=== PATIENT | female | born 1940 | race Caucasian/White ===

== ENCOUNTER → 2016-10-25 | Outpatient (CLI) | payer MEDICARE, OTHER ==
[2016-10-25 12:27] LABS: CH 26.7; CHCM 29.5; HCT 39.4 % (34.0-46.0); HDW 2.52; HGB 12.1 gm/dL (11.4-16.0); Hypochromasia Marked; MCH 27.8 pg (25.0-35.0); MCHC 30.7 g/dL (31.0-37.0); MCV 90.7 fL (80.0-100.0); Mean Platelet Volume 6.7; RBC 4.34 m/uL (3.80-5.40); RDW 13.9 % (11.5-15.5); WBC 14.8 k/uL (3.8-10.6)
[2016-10-25 12:52] LABS: Potassium 4.6 mmol/L (3.5-5.1)
[2016-10-25 13:34] LABS: Prothrombin Time 10.3 sec (9.0-12.0)
[2016-10-25 13:37] LABS: Partial Thromboplastin Time 21.1 sec (22.0-30.0)
== END | disposition home or self-care (01) ==
LOC: LABPAT 11:41
PROVIDERS: ATTEND Orthopaedic Surgery
DX: Z01.818 Encounter for other preprocedural examination (principal); M16.12 Unilateral primary osteoarthritis, left hip
CPT/HCPCS: 80051; 82565; 84520; 85027; 85610; 85730; 86850; 86900; 86901; 87070

== ENCOUNTER 2016-11-01 06:10 | Inpatient (IN) | payer MEDICARE, OTHER ==
[2016-10-20 11:30] VITALS: BMI 35.5
--- NOTE | 2016-10-31 11:24 | HP ---
DATE OF ADMISSION: Мария Hess is a 76-year-old patient seen with symptomatic left hip osteoarthritis. After having treatment options discussed, she elected to proceed with left total hip arthroplasty. Consent regarding the procedure was obtained. Medical clearance was provided by Dr. Sexton. Pulmonary clearance was provided by Dr. Chou. Cardiac clearance was provided Dr. Olivares. Past medical history is cardiovascular disease, hypertension, COPD. PAST SURGICAL HISTORY: Coronary artery bypass surgery, excision of ovarian cyst. Daily medications: 1. Amlodipine. 2. Lasix. 3. Lisinopril. 4. Spiriva. 5. Symbicort. 6. Ventolin. 7. Xarelto. ALLERGIES ARE CODEINE. SOCIAL HISTORY: Patient currently smokes cigarettes. Physical evaluation of the left hip. There is diffuse tenderness, there is very limited range of motion with severe pain. There is diffuse weakness about the hip girdle. Hip impingement sign is positive. Distal neurovascular exam is intact. Radiographs of the left hip revealed severe osteoarthritis. IMPRESSION: Left hip osteoarthritis. PLAN: Direct anterior left total hip arthroplasty.
[~2016-11-01 06:10] MED LIST: ACETAMINOPHEN TAB 500 MG TAB PO ONE; MELOXICAM 7.5 MG TAB PO ONE; MIDAZOLAM 2 MG/2 ML VIAL IV PRN; ONDANSETRON 4 MG/2 ML VIAL IVP ONE; TRANEXAMIC ACID 1,000 MG in SODIUM CHLORIDE 0.9% 100 ML IVPB ONE; ceFAZolin 2 GM in SODIUM CHLORIDE 0.9% 100 ML IVPB ONE
[2016-11-01] MEDS ORDERED: LIDOCAINE 1% 20 ML VIAL (10MG/ML) FOR IV START INTRADERMA ONE (06:36)
[2016-11-01] MEDS: LACTATED RINGERS 1,000 ML IV SCH (06:44)
[2016-11-01] MEDS ORDERED: ROPIVACAINE 246.25 MG, EPINEPHrine 0.5 MG, KETOROLAC 30 MG, cloNIDine HCL/PF 80 MCG, WA... MISCELLANE ONE ×5 (07:25)
[2016-11-01] MEDS ORDERED: SODIUM CHLORIDE 0.9% 100 ML BAG ONE (07:30)
[2016-11-01] MEDS ORDERED: MIDAZOLAM 2 MG/2 ML VIAL ONE (07:30)
[2016-11-01] MEDS ORDERED: LIDOCAINE 1% INJ 10MG/ML (20 ML MDV) ONE (07:30)
[2016-11-01] MEDS ORDERED: PROPOFOL 10 MG/ML 20 ML VIAL IV ONE (07:30)
[2016-11-01] MEDS ORDERED: PHENYLEPHRINE-0.9% NACL SYG 1 MG/10 ML SYRINGE ONE (07:30)
[2016-11-01] MEDS ORDERED: TRANEXAMIC ACID 1,000 MG/10 ML VIAL ONE (07:30)
[2016-11-01] MEDS ORDERED: CLINDAMYCIN 1,800 MG in SODIUM CHLORIDE 0.9% IRRIGATIO 3,000 ML IRRIGATION ONE (08:12)
[2016-11-01] MEDS ORDERED: NALOXONE 0.4 MG/ML 1 ML VIAL IV PRN (09:40)
[2016-11-01] MEDS ORDERED: hydrOXYzine PAMOATE 25 MG CAP PO PRN (09:40)
[2016-11-01] MEDS ORDERED: HYDROcodone/APAP 7.5-325MG 1 EACH TAB PO PRN ×2 (09:40)
[2016-11-01] MEDS ORDERED: HYDROmorphone 1 MG/ML 1 ML SYRINGE IVP PRN ×3 (09:40)
--- NOTE | 2016-11-01 09:40 | P.OP ---
Date of Procedure: 11/01/16 Preoperative Diagnosis: Left hip osteoarthritis Postoperative Diagnosis: Left hip osteoarthritis Procedure(s) Performed: Direct anterior left total hip arthroplasty Implants: 1. Depuy Corail cementless femoral stem KA size 14 standard collar 2. Depuy pinnacle acetabular shell 56 mm press-fit 3. Depuy pinnacle polyethylene acetabular liner +4 neutral 36 mm ID 56 mm OD 4. Biolox delta ceramic femoral head plus 1. 536 millimeter Anesthesia: local, spinal Surgeon: Ghassan De Los Santos Loading Unit Tool Setter #1: Theron Nash Estimated Blood Loss (ml): 200 Pathology: other (Femoral head) Condition: stable Disposition: PACU Indications for Procedure: 76-year-old patient seen with symptomatic left hip osteoarthritis. After having treatment options discussed, she elected to proceed with left total hip arthroplasty. Operative Findings: See description of procedure Description of Procedure: The patient was taken to the operative suite. Patient underwent a spinal anesthetic by the department of anesthesia. Patient was then transferred to the [place] table. Patient was given preoperative IV antibiotics and TXA. Both lower extremities were placed in standard leg spars. The hip was then prepped and draped in the normal sterile orthopedic fashion. A standard anterior incision was made beginning 3 cm lateral and 1 cm distal to the ASIS extending 10 cm. Dissection was then carried down through the subcutaneous soft tissues down to the fascia overlying the tensor fascia tiago. An incision was now made through the fascia. Careful dissection was taken down exposing the tensor fascia tiago muscle. A Cobra retractor was now placed along the medial femoral neck and a second one along the lateral femoral neck. The venous circumflex vessels were now identified, cauterized and clipped. We identified the anterior hip capsule. An incision was made through the hip capsule along the lateral border. Tag sutures were then placed along the anterior capsule and lateral capsule. We then performed a capsulotomy. Retractors were now placed around the femoral neck itself. A Cobra retractor was now placed along the anterior acetabulum. Good exposure was now noted of the femoral head/neck complex. Residual labrum was debrided out. We placed the extremity into 3 turns of fine traction. We were then able to introduce a skid in between the femoral head and acetabulum. A placed a awl into the femoral head. We took 2 turns of traction off the extremity. Rotation was now released. The femoral head was then dislocated without difficulty. Additional releasing was performed of the capsule. The head was then reduced. All traction was released. A femoral neck cut was now made with a sagittal saw. It was completed with an osteotome at the lateral neck area. The femoral head was now removed without difficulty. There was significant/advanced osteoarthritis involving the femoral head and acetabulum. The extremity was now rotated to 60 of external rotation. It was locked in position. Residual labrum was now debrided out. Serial reaming was performed of the acetabulum. Once we reached the appropriate size and a trial was position and fit nicely. The appropriate size was now chosen opened and made available. The wound was irrigated with pulse lavage mechanical irrigation. It was introduced into the acetabulum without difficulty. The C-arm/fluoroscopy was now brought into the operative field. We made sure we had a true AP pelvic view. We now under direct C-arm/ fluoroscopy introduced into the acetabular component with appropriate version and inclination. It was well seated and stable. The C-arm was pulled back. An appropriate liner was introduced and clicked into position. It was felt to be stable. At this point retractors were removed. The extremity was now placed into 125 external rotation with no traction. The leg was now dropped to the ground and adducted. Appropriate retractors were now positioned along the proximal femur. We also placed our femoral look into position. Additional capsular releasing was performed to gain access to the proximal femur. We now used a box osteotome. A canal finder was now utilized. Serial broaching was now performed until we reached the appropriate size with good overall rotational stability. Appropriate calcar planing was performed. A trial head/ neck was placed into position. The hip was now reduced. The C-arm/fluoroscopy was brought back into the operative field. A spot film was obtained of the nonoperative hip. A spot film was obtained of the trial components. Overlays were performed, we noted good overall alignment and positioning for determining leg length. The C-arm/fluoroscopy was pulled back. Retractors were repositioned and the hip was dislocated. The leg was again taken down to the ground and adducted. Appropriate retractors were repositioned as well as the femoral hook. All trial components were removed. The femoral implant was opened along with the femoral head. The wound was irrigated with pulse lavage mechanical irrigation. The deep soft tissues were infiltrated with local analgesic. The femoral implant was introduced with good purchase and fixation noted. The femoral head was introduced with good positioning and fixation noted. Retractors were now removed. The hip was now reduced. There appeared be good positioning of the hip. This was confirmed under direct fluoroscopic imaging and a spot film was obtained to document this. A second gram of TXA was given. Bipolar cautery had been utilized intermittently through the procedure for hemostasis. The wound was irrigated copiously with pulse lavage mechanical irrigation. The superficial soft tissues were infiltrated with local analgesic. The fascia was repaired with Vicryl suture. The subcutaneous soft tissues were repaired in layers with Vicryl suture. The skin was approximated with pernio/Dermabond. Sterile dressings were applied. Patient was then awakened, transferred to a bed and taken to recovery in stable condition. Theron JIMENEZ assisted with the procedure.
[2016-11-01] MEDS ORDERED: LACTATED RINGERS 1,000 ML IV ONE (09:50)
[2016-11-01] MEDS: HYDROmorphone 1 MG/ML 1 ML SYRINGE IVP PRN ×3 (10:08→10:50)
--- NOTE | 2016-11-01 11:48 | FL ---
EXAMINATION TYPE: Left hip limited, one view FL guidance operating room DATE OF EXAM: 11/01/2016 9:21 AM FINDINGS: Image during left hip total arthroplasty shows hip replacement in gross anatomic alignment. FLUOROSCOPY Fluoroscopy time of 19 seconds was used during left anterior hip replacement. 1 image/s document/s t he procedure. FINDINGS: Intraoperative fluoroscopy as above.
[2016-11-01] MEDS: traMADol 50 MG TAB PO SCH ×3 (12:04→21:52)
[2016-11-01] MEDS: ONDANSETRON 4 MG/2 ML VIAL IVP PRN (14:03)
[2016-11-01] MEDS: ceFAZolin 2 GM in SODIUM CHLORIDE 0.9% 100 ML IVPB SCH (15:30)
--- NOTE | 2016-11-01 18:35 | CONS ---
DATE OF CONSULTATION: 11/01/2016 REASON FOR CONSULTATION: Advice regarding COPD and other medical issues, requested by Dr. De Los Santos. HISTORY OF PRESENT ILLNESS: This 76-year-old woman with a past medical history of CAD, COPD, DVT, history of hypertension, history of ASD repaired in 1990, history of pulmonary embolism, maintained on long-term anticoagulation with Coumadin, being followed by Dr. Sexton and Dr. Waters in the outpatient setting, also has chronic polycythemia. Patient underwent elective arthroplasty. Patient was admitted for further evaluation and treatment. There is no history of any fever, rigor or chills, no history of headache, loss of consciousness, seizures. PAST MEDICAL HISTORY: 1. History of CAD. 2. COPD. 3. DVT. 4. History of pulmonary embolism. 5. History of Coumadin monitoring. HOME MEDICATIONS: 1. Norvasc 5 mg p.o. daily. 2. Spiriva 1 puff daily. 3. Revatio 20 mg p.o. t.i.d. 4. Xarelto 20 mg daily. 5. Klor-Con 10 mEq p.o. daily. 6. Multivitamin 1 p.o. daily. 7. Zestril 40 mg daily. 8. Lasix 20 mg daily. 9. Vitamin B12 1000 mcg p.o. daily. 10. Symbicort 160/4.5 two puffs b.i.d. 11. Ventolin HFA 1 to 2 puffs q.6 p.r.n. ALLERGIES: 1. CODEINE. 2. PENICILLIN. FAMILY HISTORY: History of hypertension, pacemaker in the family. SOCIAL HISTORY: History of smoking. Occasional alcohol intake. REVIEW OF SYSTEMS: ENT: No diminished hearing. No diminished vision. CARDIOVASCULAR: No angina, palpitations. RESPIRATORY SYSTEM: No cough, hemoptysis. GI: No nausea, vomiting. : No dysuria, retention. NERVOUS SYSTEM: No numbness or weakness. ALLERGY/IMMUNOLOGY: No asthma, hayfever. MUSCULOSKELETAL: As mentioned earlier. HEMATOLOGY/ONCOLOGY: No history of anemia. ENDOCRINE: No history of diabetes, hypothyroidism. CONSTITUTIONAL: As mentioned earlier. DERMATOLOGY: Negative. RHEUMATOLOGY: Negative. PSYCHIATRY: As mentioned earlier. PHYSICAL EXAMINATION: Patient is alert and oriented x3. Pulse 93, blood pressure 118/56, respiration 17, temperature 97 degrees, pulse ox 95% on 3 L. HEENT: Conjunctivae normal. NECK: No jugular venous distention. CARDIOVASCULAR SYSTEM: S1, S2 muffled. RESPIRATORY SYSTEM: Breath sounds diminished at the bases. No rhonchi. No crackles. ABDOMEN: Soft, non-tender. No mass palpable. LEGS: Status post hip arthroplasty. NERVOUS SYSTEM: Higher functions as mentioned earlier. Moves all 4 limbs. No focal motor or sensory deficit. LYMPHATICS: No lymph node palpable in neck, axillae or groin. SKIN: No ulcer, rash, bleeding. LABS: WBC 14.8. CBC within normal limits. Creatinine is 1.09. Glucose 170. Albumin is 3.3. ASSESSMENT: 1. Status post left hip arthroplasty for severe degenerative joint disease. 2. History of coronary artery disease. 3. History of chronic obstructive pulmonary disease. 4. History of deep venous thrombosis. 5. History of hypertension. 6. History of ASD repair. 7. History of pulmonary embolism. 8. Chronic Coumadin anticoagulation. 9. History of chronic polycythemia. 10. History of coronary artery disease, coronary artery bypass grafting. 11. History of hysterectomy. 12. History of nicotine dependence, continued ongoing. 13. FULL CODE. 14. Obesity; body mass index of 35.5. RECOMMENDATIONS AND DISCUSSION: In this 76-year-old woman who presented with multiple complex medical issues, we will monitor the patient closely, continue the current medications, continue with symptomatic treatment. Patient was taking Xarelto at home. I would recommend initiating Xarelto when deemed appropriate by Orthopedic Surgery. Otherwise, resume the rest of the medications. I would also recommend baseline labs and repeat followup also. Will follow the patient closely. Patient appears to be slightly dehydrated at this time. The patient will be asked to follow with Dr. Sexton closely upon discharge. Thank you, Dr. De Los Santos, for letting us participate in the care of this patient.
[2016-11-01] MEDS: SENNOSIDES-DOCUSATE SODIUM 1 EACH TAB PO SCH (19:45)
[2016-11-02] MEDS: ceFAZolin 2 GM in SODIUM CHLORIDE 0.9% 100 ML IVPB SCH (00:37)
[2016-11-02] MEDS: SODIUM CHLORIDE 0.9% 1,000 ML IV SCH ×3 (03:06→19:49)
[2016-11-02 07:48] LABS: Basophils % (A) 0 %; CH 26.9; CHCM 29.4; Eosinophils # (A) 0.2 k/uL (0-0.7); Eosinophils % (A) 2 %; HCT 34.1 % (34.0-46.0); HDW 2.47; HGB 10.2 gm/dL (11.4-16.0); Hypochromasia Marked; Luc # (Auto) 0.21; Luc % (Auto) 2; Lymphocytes # (A) 1.7 k/uL (1.0-4.8); Lymphocytes % (A) 18 %; MCH 27.4 pg (25.0-35.0); MCHC 29.8 g/dL (31.0-37.0); MCV 91.9 fL (80.0-100.0); Mean Platelet Volume 6.7; Monocytes # (A) 0.7 k/uL (0-1.0); Monocytes % (A) 7 %; Neutrophils # (A) 6.4 k/uL (1.3-7.7); Neutrophils % (A) 70 %; RBC 3.72 m/uL (3.80-5.40); RDW 14.5 % (11.5-15.5); WBC 9.2 k/uL (3.8-10.6); WBC (Perox) 9.52
[2016-11-02] MEDS: LACTATED RINGERS 1,000 ML IV SCH ×2 (08:41→19:49)
[2016-11-02] MEDS: MULTIVITAMINS, THERA 1 EACH TAB PO SCH ×2 (08:43→16:02)
[2016-11-02] MEDS: ENOXAPARIN 40 MG/0.4 ML SYRINGE SQ SCH (08:43)
[2016-11-02] MEDS: MELOXICAM 7.5 MG TAB PO SCH (08:43)
[2016-11-02] MEDS: traMADol 50 MG TAB PO SCH ×4 (08:44→20:54)
[2016-11-02] MEDS: FAMOTIDINE 20 MG TAB PO SCH (08:44)
[2016-11-02] MEDS: ONDANSETRON 4 MG/2 ML VIAL IVP PRN ×2 (11:00→17:25)
[2016-11-02] MEDS ORDERED: FUROSEMIDE 10 MG/ML 2 ML VIAL IV STA (12:09)
[2016-11-02] MEDS: ALBUTEROL NEBULIZED 2.5 MG/3 ML INHALATION PRN ×2 (12:12→20:22)
[2016-11-02] MEDS: TIOTROPIUM 18 MCG/PUFF INHALER INHALATION SCH (12:18)
[2016-11-02] MEDS: SYMBICORT 160-4.5 MCG INHALER INHALATION SCH ×2 (12:19→20:22)
[2016-11-02] MEDS ORDERED: MULTIVITAMINS, THERA 1 EACH TAB PO SCH (12:30)
--- NOTE | 2016-11-02 13:07 | XR ---
EXAMINATION TYPE: XR chest 1V portable DATE OF EXAM: 11/02/2016 12:12 PM COMPARISON: 03/11/2014 INDICATION: CHF TECHNIQUE: Single frontal view of the chest is obtained. FINDINGS: The heart size is mildly prominent. The pulmonary vasculature is upper limits of normal. Mild lingular infiltrate may be present. Previous atelectasis at the bases has resolved. Previous eff usion not evident. IMPRESSION: 1. Suggestion of a mild lingular trait such as atelectasis. Follow-up can be performed as clinically indicated.
--- NOTE | 2016-11-02 15:24 | P.PN ---
Subjective Principal diagnosis: Status post left total hip arthroplasty Patient seen today resting in her hospital chair, she appears comfortable. She' s ambulated minimally at this time, there was a little bit of nausea and lightheadedness. Patient denies any chest pain, shortness of breath, fever chills. Objective - Vital Signs Vital signs: Vital Signs Temp 98.6 F 11/02/16 14:07 Pulse 92 11/02/16 14:07 Resp 17 11/02/16 14:07 BP 94/56 11/02/16 14:07 Pulse Ox 94 L 11/02/16 14:07 Intake & Output 11/01/16 11/02/16 11/02/16 18:59 06:59 18:59 Intake Total 2010 1150 360 Output Total 335 650 900 Balance 1676 500 -540 Weight 99.79 kg 99.79 kg Intake: IV 1651 650 Sodium Chloride 0.9% 1, 500 650 000 ml @ 50 mls/hr IV . Q20H [place] Rx#:[id number] Intake, IV Titration 100 Amount ceFAZolin 2 gm In Sodium 100 Chloride 0.9% 100 ml @ 100 mls/hr IVPB Q8HR [place] Rx#:[id number] Oral 360 400 360 Output: Urine 135 650 900 Uretheral (Mendez) 200 Estimated Blood Loss 200 Other: Voiding Method Indwelling Catheter Indwelling Catheter Indwelling Catheter # Voids 1 - Exam Left lower extremity: Incision is clean, dry and intact. Minimal ecchymosis present. Minimal soft tissue swelling noted around the hip. Anterior posterior compartments of the upper leg are soft. Calf is supple, no tenderness with palpation. Plantar flexion, dorsiflexion, EHL, FHL are intact. Sensory exam to light touch throughout the extremity is intact. Cap refills less than 3 seconds. - Labs CBC & Chem 7: 11/02/16 06:50 Labs: Abnormal Lab Results - Last 24 Hours (Table) 11/02/16 Range/Units 06:50 RBC 3.72 L (3.80-5.40) m/uL Hgb 10.2 L (11.4-16.0) gm/dL MCHC 29.8 L (31.0-37.0) g/dL Assessment and Plan Plan: Assessment: 1. Postop day #1 status post left total hip arthroplasty Plan: 1. Pain control, continue oral medication 2. Encourage incentive spirometer 3. Daily dressing changes/ice and elevate 4. GI and DVT prophylaxis, continue Lovenox discontinued tomorrow and begin Xarelto 5. Medical recommendations 6. PT/CPM 7. Discharge planning: Patient will likely be discharged home tomorrow Time with Patient: Less than 30
--- NOTE | 2016-11-02 15:27 | P.DS ---
Providers Date of admission: 11/01/16 06:10 Expected date of discharge: 11/04/16 Attending physician: Ghassan De Los Santos Consults: 11/01/16 09:40 Consult Physician Routine Consulting Provider: Segundo Castillo Consult Reason/Comments: Medical management Do you want consulting provider notified?: Yes Primary care physician: Carlie Pappas [facility] Course: Date of admission: 11/01/2016 Date of discharge: 11/04/2016 Admission diagnosis: Status post left total hip arthroplasty Discharge diagnosis: Same Attending physician: Dr. De Los Santos Surgical procedures: Left total hip arthroplasty Brief history: Patient is a 76-year-old female with a history of progressive primary left hip osteoarthritis. At this point patient has failed conservative treatment measures and has opted to proceed with a elective left total hip arthroplasty. Hospital course: Details of patient's surgery can be found in operative report. Patient tolerated the procedure well and was subsequently transported to orthopedic floor. Patient's orthopeidc and medical care was provided daily. Patient had daily laboratory tests performed for evaluation of overall blood counts. Patient had daily physical therapy to include strengthening range of motion as well as education with walker ambulation. Patient was treated with Xarelto and Lovenox for their postoperative DVT prophylaxis during their inpatient stay. Patient was noted to have a relatively uneventful postoperative course. Patient reported satisfactory pain control with oral pain medications by postoperative day 0. Patient showed satisfactory progress with physical therapy. Patient moved steadily through the program and had no difficulty meeting the goals by postoperative day 3. Given patient's otherwise satisfactory course and having met physical therapy goals, plan is to discharge patient home on postoperative day 3. Discharge condition/disposition: Patient will be discharged home in stable condition. Discharge medications: Instructions are given on resumption of patient's normal daily medications per primary care recommendation, in addition patient will be prescribed tramadol 50 mg, Colace 100 mg, Pepcid 20 mg. Discharge instructions: 1. Wound care and infection precautions, keep incision dry and covered while showering, no lotions, creams, moisturizers. No soaking, tubs, pools, hottubs. Do not scrub over the incision. 2. Weight-bear as tolerated with walker / cane until follow-up. 3. Ice and elevate when necessary. Do not exceed 20 minutes per hour with ice pack. 4. Utilize compression sleeve until seen at first follow up appointment. 5. Visiting nursing care. 6. Home physical therapy. 7. Pain meds and anticoagulants per prescription. 8. Pain medication has potential to cause constipation. Increase oral fluid and fiber intake. Contact primary care provider if you have not had a bowel movement within 48 hours after discharge 9. No anti-inflammatory medication until discussed at first post operative visit, this including Motrin, Aleve, Mobic, Diclofenac. 10. Follow up in office at 2 weeks postop with Raúl Nash PA-C 11. Follow up with your primary care doctor 7-10 days after discharge. 12. Contact [facility] with any questions, . Procedures: Left total hip arthroplasty Patient Condition at Discharge: Good Plan - Discharge Summary New Discharge Prescriptions: Docusate [Colace] 100 mg PO DAILY #20 capsule Famotidine [Pepcid] 20 mg PO DAILY #20 tablet traMADol HCl [Ultram] 50 mg PO Q6H PRN #40 tab PRN Reason: Pain Discharge Medication List Budesonide-Formot 160-4.5 Mcg [Symbicort 160-4.5 Mcg Inhaler] 2 puff INHALATION RT-BID 03/11/14 [History] Lisinopril [Zestril] 40 mg PO DAILY 03/11/14 [History] Tiotropium [place] [Spiriva] 1 puff INHALATION RT-DAILY 03/11/14 [History] Rivaroxaban [Xarelto] 20 mg PO DAILY #30 tab 03/15/14 [Rx] Cyanocobalamin [Vitamin B-12] 1,000 mcg PO DAILY 02/13/15 [History] Furosemide [Lasix] 20 mg PO DAILY 02/13/15 [History] Potassium Chloride [Klor-Con 10] 10 meq PO DAILY 02/13/15 [History] Albuterol Inhaler [Ventolin Hfa Inhaler] 1 - 2 puff INHALATION RT-Q6H PRN [History] Multivitamins, Thera [Multivitamin] 1 tab PO DAILY 10/20/16 [History] Sildenafil [Revatio] 20 mg PO TID 10/20/16 [History] amLODIPine BESYLATE [Norvasc] 5 mg PO DAILY 10/20/16 [History] Docusate [Colace] 100 mg PO DAILY #20 capsule 11/04/16 [Rx] Famotidine [Pepcid] 20 mg PO DAILY #20 tablet 11/04/16 [Rx] traMADol HCl [Ultram] 50 mg PO Q6H PRN #40 tab 11/04/16 [Rx] Follow up Appointment(s)/Referral(s): Theron Nash PAC [PHYSICIAN INSTRUCTOR [employer]ING] - 11/19/16 1:50 pm Activity/Diet/Wound Care/Special Instructions: Home Care - [place] [facility] - [phone] [facility] - [phone] - to be delivered to room prior to discharge Orthopedic Discharge Instructions: 1. Wound care and infection precautions, keep incision dry and covered while showering, no lotions, creams, moisturizers. No soaking, pools, hot tubs. Do not scrub over incision. 2. Weight-bear as tolerated with walker / cane until follow-up. 3. Ice and elevate when necessary. Do not exceed 20 minutes per hour with ice pack. 4. Utilize compression sleeve until seen at first follow up appointment. 5. Visiting nursing care. 6. Home physical therapy. 7. Pain meds and anticoagulants per prescription. 8. Pain medication has potential to cause constipation. Increase oral fluid and fiber intake. Contact primary care provider if you have not had a bowel movement within 48 hours after discharge. 9. No anti-inflammatory medication until discussed at first post operative visit, this including Motrin, Aleve, Mobic, Diclofenac. 10. Follow up in office at 2 weeks postop with Raúl Nash PA-C 11. Follow up with your primary care doctor 7-10 days after discharge. 12. Contact [facility] with any questions, . Discharge Disposition: HOME WITH HOME HEALTH SERVICES
[2016-11-02] MEDS: FUROSEMIDE 20 MG TAB PO SCH (15:57)
[2016-11-02] MEDS: POTASSIUM CITRATE 10 MEQ TABLET.ER PO SCH (16:00)
[2016-11-02] MEDS: SENNOSIDES-DOCUSATE SODIUM 1 EACH TAB PO SCH (19:51)
[2016-11-02] MEDS ORDERED: ONDANSETRON 4 MG/2 ML VIAL IVP PRN (21:38)
[2016-11-03] MEDS: ACETAMINOPHEN TAB 325 MG TAB PO PRN ×2 (01:22→06:36)
[2016-11-03] MEDS: SYMBICORT 160-4.5 MCG INHALER INHALATION SCH ×2 (07:33→19:46)
[2016-11-03] MEDS: ALBUTEROL NEBULIZED 2.5 MG/3 ML INHALATION PRN ×3 (07:33→19:44)
[2016-11-03] MEDS: TIOTROPIUM 18 MCG/PUFF INHALER INHALATION SCH (07:34)
--- NOTE | 2016-11-03 08:17 | PN ---
DATE OF SERVICE: 11/02/2016 This is a 76-year-old woman who was admitted with left hip arthroplasty for severe DJD, is improving significantly. No chest pain or palpitation. No fever. The patient is complaining of some mild dizziness at this time. Otherwise, the chest x-ray showed some mild lingular trait at this time. On exam, alert and oriented x3. Pulse is 86, blood pressure 111/43, respirations 16, temperature is 98 degrees, pulse ox 94% on 3 L. HEENT: Conjunctivae normal. NECK: No jugular venous distension. CARDIOVASCULAR: S1, S2 present. LUNGS: Breath sounds diminished at the bases, bilateral scattered rhonchi, no crackles. Abdomen is soft, nontender. EXTREMITIES: Legs status post surgery. NERVOUS SYSTEM: No focal deficits. LABS: Hemoglobin 10.2 ASSESSMENT: 1. Status post left hip arthroplasty for severe degenerative joint disease. 2. History of coronary artery disease. 3. Chronic obstructive pulmonary disease. 4. History of deep venous thrombosis. 5. History of hypertension. 6. History of AST. 7. History of pulmonary embolus. 8. Chronic Coumadin anticoagulation. 9. History of chronic polycythemia. 10. History of coronary artery disease, coronary artery bypass grafting. 11. History of hysterectomy. 12. History of nicotine dependence, continued ongoing. 13. Obesity, body mass index of 34.5. 14. FULL CODE: RECOMMENDATION: In this 76-year-old woman who presented with multiple complex medical issues, will monitor the patient closely. Continue with the current medication and symptomatic treatment. Otherwise, at this time I would recommend continue with the bronchodilators and continue with the rest of the medications. Closely follow with Orthopedics. Further recommendations to follow.
[2016-11-03] MEDS: CYANOCOBALAMIN 500 MCG TAB PO SCH (08:21)
[2016-11-03] MEDS: POTASSIUM CITRATE 10 MEQ TABLET.ER PO SCH (08:21)
[2016-11-03] MEDS: ENOXAPARIN 40 MG/0.4 ML SYRINGE SQ SCH (08:21)
[2016-11-03] MEDS: MELOXICAM 7.5 MG TAB PO SCH (08:22)
[2016-11-03] MEDS: FAMOTIDINE 20 MG TAB PO SCH (08:22)
[2016-11-03] MEDS: FUROSEMIDE 20 MG TAB PO SCH (08:22)
[2016-11-03] MEDS: MULTIVITAMINS, THERA 1 EACH TAB PO SCH (08:23)
[2016-11-03] MEDS: traMADol 50 MG TAB PO SCH ×4 (08:32→20:55)
[2016-11-03] MEDS ORDERED: HYDROcodone/APAP 5-325MG 1 EACH TAB PO PRN (08:50)
[2016-11-03] MEDS ORDERED: NON-FORMULARY DRUG (Rivaroxaban [Xarelto] 20 MG) PO SCH (09:00)
--- NOTE | 2016-11-03 10:11 | P.PN ---
Subjective Principal diagnosis: Status post left total hip arthroplasty Patient seen today resting in her hospital chair, she appears comfortable. She' s ambulated minimally at this time. She continues to have some nausea. Patient denies any chest pain, shortness of breath, fever chills. Objective - Vital Signs Vital signs: Vital Signs Temp 98.6 F 11/03/16 07:38 Pulse 86 11/03/16 07:54 Resp 18 11/03/16 07:38 BP 117/54 11/03/16 07:38 Pulse Ox 91 L 11/03/16 07:38 Intake & Output 11/02/16 11/03/16 11/03/16 18:59 06:59 18:59 Intake Total 480 Output Total 1350 Balance -870 Weight 99.79 kg Intake: Oral 480 Output: Urine 1350 Other: Voiding Method Indwelling Catheter Toilet # Voids 1 1 - Exam Left lower extremity: Incision is clean, dry and intact. Minimal ecchymosis present. Minimal soft tissue swelling noted around the hip. Anterior posterior compartments of the upper leg are soft. Calf is supple, no tenderness with palpation. Plantar flexion, dorsiflexion, EHL, FHL are intact. Sensory exam to light touch throughout the extremity is intact. Cap refills less than 3 seconds. - Labs CBC & Chem 7: 11/02/16 06:50 Assessment and Plan Plan: Assessment: 1. Postop day #2 status post left total hip arthroplasty Plan: 1. Pain control, continue to increase oral medication to hopefully help with nausea 2. Encourage incentive spirometer 3. Daily dressing changes/ice and elevate 4. GI and DVT prophylaxis, continue Lovenox during inpatient stay 5. Medical recommendations 6. PT/CPM 7. Discharge planning: Patient will likely be discharged home today Time with Patient: Less than 30
--- NOTE | 2016-11-03 14:30 | PN ---
DATE OF SERVICE: 11/03/2016 This 76-year-old woman was admitted after left hip arthroplasty, has improved significantly. Patient starting some wheezing yesterday. After starting the bronchodilators, patient feeling much better. No chest pain, no palpitation, no fever. On exam, alert and oriented x3. Pulse 80, blood pressure is 117/54, respirations 18, temperature 98.6. Pulse ox 91% on 4 L. HEENT: Conjunctivae normal. NECK: No jugular venous distension. CARDIOVASCULAR SYSTEM: S1, S2, muffled. RESPIRATORY: Breath sounds diminished at the bases. A few scattered rhonchi. ABDOMEN: Soft, nontender. EXTREMITIES: Legs status post surgery. NERVOUS SYSTEM: No focal labs. LABS: Hemoglobin 10.2. ASSESSMENT: 1. Status post left hip arthroplasty for severe degenerative joint disease. 2. Anemia, postoperative, possibly dilutional. 3. History of coronary artery disease. 4. History of chronic obstructive pulmonary disease. 5. History of deep venous thrombosis. 6. Hypertension. 7. Increased AST. 8. History of pulmonary embolism. 9. History of chronic Xarelto anticoagulation. 10. History of chronic polycythemia. 11. History of coronary artery disease, coronary artery bypass graft. 12. History of hysterectomy. 13. History of nicotine dependence, continued ongoing. 14. Obesity, body mass index of 34.5. 15. FULL CODE. RECOMMENDATION: Recommend to continue with the current medications. Continue with the monitoring and symptomatic treatment. Continue with the DVT prophylaxis. Continue with the bronchodilators. Measure oxygenation, incentive spirometry. Further recommendations to follow.
[2016-11-03] MEDS: SODIUM CHLORIDE 0.9% 1,000 ML IV SCH (19:39)
[2016-11-03] MEDS: LACTATED RINGERS 1,000 ML IV SCH (19:39)
[2016-11-03] MEDS: SENNOSIDES-DOCUSATE SODIUM 1 EACH TAB PO SCH (20:55)
[2016-11-04] MEDS: ACETAMINOPHEN TAB 325 MG TAB PO PRN (06:06)
[2016-11-04] MEDS: ALBUTEROL NEBULIZED 2.5 MG/3 ML INHALATION PRN ×2 (07:11→11:20)
[2016-11-04] MEDS: SYMBICORT 160-4.5 MCG INHALER INHALATION SCH (07:12)
[2016-11-04] MEDS: TIOTROPIUM 18 MCG/PUFF INHALER INHALATION SCH (07:12)
[2016-11-04 07:13] VITALS: BP 113/60; RESP 18; TEMP 98.7
[2016-11-04] MEDS ORDERED: RIVAROXABAN 10 MG TAB PO SCH (07:30)
[2016-11-04] MEDS: MELOXICAM 7.5 MG TAB PO SCH (07:54)
[2016-11-04] MEDS: FAMOTIDINE 20 MG TAB PO SCH (07:55)
[2016-11-04] MEDS: POTASSIUM CITRATE 10 MEQ TABLET.ER PO SCH (07:55)
[2016-11-04] MEDS: MULTIVITAMINS, THERA 1 EACH TAB PO SCH (07:55)
[2016-11-04] MEDS: CYANOCOBALAMIN 500 MCG TAB PO SCH (07:55)
[2016-11-04] MEDS: FUROSEMIDE 20 MG TAB PO SCH (07:55)
[2016-11-04] MEDS: traMADol 50 MG TAB PO SCH (07:55)
[2016-11-04 08:18] LABS: Basophils % (A) 0 %; CHCM 29.6; Eosinophils # (A) 0.3 k/uL (0-0.7); Eosinophils % (A) 4 %; HCT 33.4 % (34.0-46.0); HDW 2.45; HGB 10.1 gm/dL (11.4-16.0); Hypochromasia Marked; Luc # (Auto) 0.19; Luc % (Auto) 2; Lymphocytes # (A) 1.3 k/uL (1.0-4.8); Lymphocytes % (A) 17 %; MCH 27.7 pg (25.0-35.0); MCHC 30.3 g/dL (31.0-37.0); MCV 91.5 fL (80.0-100.0); Mean Platelet Volume 6.8; Monocytes # (A) 0.5 k/uL (0-1.0); Monocytes % (A) 6 %; Neutrophils # (A) 5.5 k/uL (1.3-7.7); Neutrophils % (A) 71 %; RBC 3.65 m/uL (3.80-5.40); RDW 14.6 % (11.5-15.5); WBC 7.8 k/uL (3.8-10.6)
[2016-11-04 09:38] LABS: Glucose,Whole Blood 202 mg/dL (75-99)
--- NOTE | 2016-11-04 10:52 | P.PN ---
Subjective Principal diagnosis: Status post left total hip arthroplasty Patient seen today resting in her hospital chair, she appears comfortable. Patient denies any chest pain, shortness of breath, fever chills. Objective - Vital Signs Vital signs: Vital Signs Temp 98.7 F 11/04/16 07:12 Pulse 83 11/04/16 07:22 Resp 18 11/04/16 07:12 BP 113/60 11/04/16 07:12 Pulse Ox 94 L 11/04/16 07:12 Intake & Output 11/03/16 11/04/16 11/04/16 18:59 06:59 18:59 Intake Total 720 240 Balance 720 240 Intake: Oral 720 240 Other: Voiding Method Toilet Toilet Toilet # Voids 2 1 1 - Exam Left lower extremity: Incision is clean, dry and intact. Minimal ecchymosis present. Minimal soft tissue swelling noted around the hip. Anterior posterior compartments of the upper leg are soft. Calf is supple, no tenderness with palpation. Plantar flexion, dorsiflexion, EHL, FHL are intact. Sensory exam to light touch throughout the extremity is intact. Cap refills less than 3 seconds. - Labs CBC & Chem 7: 11/04/16 07:05 Labs: Abnormal Lab Results - Last 24 Hours (Table) 11/04/16 11/04/16 Range/Units 07:05 09:33 RBC 3.65 L (3.80-5.40) m/uL Hgb 10.1 L (11.4-16.0) gm/dL Hct 33.4 L (34.0-46.0) % MCHC 30.3 L (31.0-37.0) g/dL POC Glucose (mg/dL) 202 H (75-99) mg/dL Assessment and Plan Plan: Assessment: 1. Postop day #3 status post left total hip arthroplasty Plan: 1. Pain control, continue with oral medication 2. Encourage incentive spirometer 3. Daily dressing changes/ice and elevate 4. GI and DVT prophylaxis, we'll resume Xarelto 10 mg after discharge 5. Medical recommendations 6. PT/CPM 7. Discharge planning: Will be discharged home today Time with Patient: Less than 30
[2016-11-04 11:34] VITALS: PULSE 88
--- NOTE | 2016-11-04 18:06 | PN ---
DATE OF SERVICE: 11/04/2016 This 76-year-old woman who was admitted after left hip arthroplasty is improving significantly. No chest pain. No palpitation. No fever. On exam, alert and oriented x3. Pulse 83, blood pressure 130/60, respiration 18, temperature 98.7. Pulse ox 94% on 3 L. HEENT: Conjunctivae normal. NECK: No jugular venous distention. CARDIOVASCULAR SYSTEM: S1, S2 muffled. RESPIRATORY SYSTEM: Breath sounds diminished at the bases. No rhonchi. No crackles. ABDOMEN: Soft. LEGS: Status post surgery. NERVOUS SYSTEM: No focal deficit. LABS: Hemoglobin 10.1. Glucose 202. ASSESSMENT: 1. Status post left hip arthroplasty for severe degenerative joint disease. 2. Anemia, postoperative, possibly dilutional. 3. History of coronary artery disease. 4. History of chronic obstructive pulmonary disease. 5. History of deep venous thrombosis. 6. Hypertension. 7. Increased AST. 8. Increased random blood sugar. 9. History of pulmonary embolism. 10. History of chronic Xarelto anticoagulation. 11. History of chronic polycythemia. 12. History of coronary artery disease, coronary artery bypass graft. 13. History of hysterectomy. 14. History of nicotine dependence and ongoing. 15. Obesity; body mass index 34.5. 16. FULL CODE. RECOMMENDATIONS AND DISCUSSION: I recommend to continue with the current medications, continue with the monitoring, symptomatic treatment. Otherwise, at this time I recommend resuming the anticoagulation at home. Monitor blood sugars closely. Resume the home medication. Follow closely with primary physician Dr. Sexton. Will follow the patient closely. Continue with the bronchodilators.
== END 2016-11-04 14:05 | disposition home health service (06) | DRG 470 ==
LOC: 2ORMAIN 06:10 → 3SUR 09:53
PROVIDERS: ADMIT Orthopaedic Surgery; ATTEND Orthopaedic Surgery
PROC: 0SRB04A Replacement of Left Hip Joint with Ceramic on Polyethylene Synthetic Substitute, Uncemented, Open Approach (ICD-10-PCS; principal; 2016-11-01 07:30)
DX: M16.12 Unilateral primary osteoarthritis, left hip (principal); J44.9 Chronic obstructive pulmonary disease, unspecified; D64.9 Anemia, unspecified; I10 Essential (primary) hypertension; F17.210 Nicotine dependence, cigarettes, uncomplicated; I25.10 Atherosclerotic heart disease of native coronary artery without angina pectoris; Z79.01 Long term (current) use of anticoagulants; Z82.49 Family history of ischemic heart disease and other diseases of the circulatory system; Z86.711 Personal history of pulmonary embolism; Z86.718 Personal history of other venous thrombosis and embolism; Z87.74 Personal history of (corrected) congenital malformations of heart and circulatory system; Z95.1 Presence of aortocoronary bypass graft
CPT/HCPCS: 71010; 73501; 85025; 86850; 86900; 86901; 88300; 94640

== ENCOUNTER 2021-08-25 12:29 | Emergency (ER) | payer MEDICARE, OTHER ==
--- NOTE | 2021-08-25 13:23 | ED ---
General Adult HPI - General Stated complaint: KATHARINE Time Seen by Provider: 08/25/21 12:45 - History of Present Illness Initial comments: Dictation was produced using [employer] dictation software. please excuse any grammatical, word or spelling errors. Chief Complaint: Patient is a 81-year-old female she presents to the emergency department after fall. History of Present Illness: 81-year-old female she brought to the emergency department by EMS after suffering a fall today. Patient reports that she fell today. She states she lost her balance fell back into the chair but she does report falling down to the ground. She denies any pain complaints. She states she has history of COPD wears oxygen at home. She is a poor historian unable to give a detailed history. She states she fell but does not hurt anywhere. She states she lives with shortness of breath chronically. She wears oxygen at home but does not know what her oxygen settings are. States that her shortness of breath is not worse and feels to be at baseline. Unable to obtain review of systems secondary to lethargy PHYSICAL EXAM: General Impression: not in acute distress, lethargic, ashen HEENT: Normocephalic atraumatic, extra-ocular movements intact, pupils equal and reactive to light bilaterally, dry mucous membranes Cardiovascular: Heart regular rate and rhythm Chest: Able to complete full sentences, no retractions, no tachypnea, diffuse lung wheezing Abdomen: abdomen soft, non-tender, non-distended, no organomegaly Musculoskeletal: Pulses present and equal in all extremities, no peripheral edema Motor: no focal deficits noted Neurological: CN II-XII grossly intact, no focal motor or sensory deficits noted Skin: Intact with no visualized rashes ED course: 81-year-old male presents today after fall. Vital signs upon arrival shows central 99.1, respiratory rate of 26, 96% on 6 L nasal cannula. She is a poor historian. She appears lethargic. She is hypoxic and requiring oxygen therapy. States she fell backwards into her chair but she reports she somehow ended on the floor. Patient denies any pain complaints. States that her shortn ess of breath is at baseline. At approximately 2:30 PM patient became unresponsive and cold blue. Patient was pulseless. CPR was performed for several cycles. Return of spontaneous circulation was achieved. Patient was intubated in fast track. She had a lot of bleeding coming from the endotracheal tube. intubation was atraumatic. there was concern of pulmonary hemorrhage. Copious suction of blood was performed by respiratory therapy. Patient was moved from fast track bed to trauma bay. EKG performed after this round of CPR showed A. fib ventricular rate 141. Patient had right femoral central venous catheter placed. She was started on Levophed and epinephrine per she is given multiple rounds of sodium bicarbonate. Patient's laboratory evaluation was resulted and reviewed after first CPR event. CBC is within reasonable limits. Coag panel is negative. Metabolic panel shows metabolic alkalosis. Renal markers slightly elevated otherwise negative troponin. Brain natruretic peptide is normal. coronavirus test is negative. Computed tomography scan of the head and C-spine was suboptimal but no clearly evident fracture or intracranial issues. Chest x-ray showed cardiomegaly with pulmonary venous congestion but no overt failure. Pelvis x-ray showed no acute traumatic injuries. Patient arrived to trauma bay 2 and became bradycardic and pulseless. CPR was continued. Processes achieved on some occasions however at CPR did not achieve any sustainable ROSC lasting for more than 1-2 minutes. Point care bedside ultrasound showed no pericardial effusion or tamponade. Heart looked weak with signs heart failure. There was no pneumothorax on ultrasound of the lungs. No free abdominal fluid. Time of was declared at 1508. Initial EKG interpretation on arrival: Ventricular rate 93, sinus rhythm with first-degree AV block, IN interval to 44, QRS 62, QTc 644. No IN prolongation, no QTC prolongation, no ST or T-wave changes noted. EKG compared to 03/11/2014 showing no changes. Overall, this EKG is unremarkable Patient case was discussed with who is place in the family room. He states that over the last 4 days patient has been showing signs of acute delirium. She has a history of thromboembolic disease and takes Xarelto as pro phylaxis. She is displaying very strange behavior. Over the last 48 hours she started to appear more lethargic to the point were her head with slump over and she become short of breath. Today patient went to go sit down when she missed the chair and fell landing sideways. The reason EMS was called by was because patient fell. Patient's was notified that she had . Case was discussed with Sonia, medical education coordinator. - Related Data Home Medications Medication Instructions Recorded Confirmed Lisinopril [Zestril] 40 mg PO DAILY 03/11/14 08/25/21 Albuterol Sulfate [Ventolin HFA] 2 puff INHALATION RT-QID 08/25/21 08/25/21 Furosemide [Lasix] 40 mg PO DAILY 08/25/21 08/25/21 Ipratropium-Albuterol Nebulize 3 ml INHALATION RT-Q4H PRN 08/25/21 08/25/21 [Duoneb 0.5 mg-3 mg/3 ml Soln] amLODIPine [Norvasc] 10 mg PO DAILY 08/25/21 08/25/21 Allergies Allergy/AdvReac Type Severity Reaction Status Date / Time codeine Allergy Nausea & Verified 08/25/21 14:27 Vomiting & Diarrhea Penicillins Allergy Rash/Hives Verified 08/25/21 14:27 Review of Systems ROS Statement: Those systems with pertinent positive or pertinent negative responses have been documented in the HPI. ROS Other: All systems not noted in ROS Statement are negative. Past Medical History Past Medical History: Coronary Artery Disease (CAD), COPD, Deep Vein Thrombosis (DVT), Hypertension Additional Past Medical History / Comment(s): atrial septa defect repaired in 1990 in [place], history of DVT and pulmonary embolus maintain on long-term ventilation with Coumadin. In addition this patient suffers from chronic polycythemia followed up by Dr. Nunez on outpatient basis. 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, Past Anesthesia/Blood Transfusion Reactions: No Reported Reaction Past Psychological History: No Psychological Hx Reported Past Alcohol Use History: None Reported Additional Past Alcohol Use History / Comment(s): SMOKER SINCE 1981 Past Drug Use History: None Reported - Past Family History Mother Family Medical History: Hypertension Additional Family Medical History / Comment(s): PACEMAKER Father Family Medical History: Cancer Additional Family Medical History / Comment(s): COLON CA Course Vital Signs 08/25/21 13:24 Temperature 99.1 F Pulse Rate 98 Respiratory 26 H Rate Blood Pressure 146/89 O2 Sat by Pulse 96 Oximetry Medical Decision Making - Lab Data Result diagrams: 08/25/21 13:19 08/25/21 13:19 Lab Results 08/25/21 08/25/21 08/25/21 Range/Units 13:19 13:19 13:19 WBC 11.4 H (3.8-10.6) k/uL RBC 4.01 (3.80-5.40) m/uL Hgb 9.4 L (11.4-16.0) gm/dL Hct 33.3 L (34.0-46.0) % MCV 83.2 (80.0-100.0) fL MCH 23.5 L (25.0-35.0) pg MCHC 28.2 L (31.0-37.0) g/dL RDW 15.7 H (11.5-15.5) % Plt Count 355 (150-450) k/uL MPV 6.8 Neutrophils % 78 % Lymphocytes % 13 % Monocytes % 5 % Eosinophils % 2 % Basophils % 0 % Neutrophils # 8.9 H (1.3-7.7) k/uL Lymphocytes # 1.5 (1.0-4.8) k/uL Monocytes # 0.5 (0-1.0) k/uL Eosinophils # 0.2 (0-0.7) k/uL Basophils # 0.1 (0-0.2) k/uL Hypochromasia Marked PT 9.9 (9.0-12.0) sec INR 0.9 (<1.2) APTT 23.2 (22.0-30.0) sec Sodium 141 (137-145) mmol/L Potassium 5.1 (3.5-5.1) mmol/L Chloride 99 (98-107) mmol/L Carbon Dioxide 37 H (22-30) mmol/L Anion Gap 5 mmol/L BUN 22 H (7-17) mg/dL Creatinine 1.11 H (0.52-1.04) mg/dL Est GFR (CKD-EPI)AfAm 55 (>60 ml/min/1.73 sqM) Est GFR (CKD-EPI)NonAf 48 (>60 ml/min/1.73 sqM) Glucose 142 H (74-99) mg/dL POC Glucose (mg/dL) (75-99) mg/dL POC Glu Compounder ID Plasma Lactic Acid Federico (0.7-2.0) mmol/L Calcium 8.9 (8.4-10.2) mg/dL Magnesium 2.3 (1.6-2.3) mg/dL Total Bilirubin 0.4 (0.2-1.3) mg/dL AST 29 (14-36) U/L ALT 16 (4-34) U/L Alkaline Phosphatase 82 (38-126) U/L Ammonia (<30) umol/L Troponin I (0.000-0.034) ng/mL NT-Pro-B Natriuret Pep pg/mL Total Protein 6.8 (6.3-8.2) g/dL Albumin 3.8 (3.5-5.0) g/dL Coronavirus (PCR) (Not Detectd) 08/25/21 08/25/21 08/25/21 Range/Units 13:19 13:19 13:19 WBC (3.8-10.6) k/uL RBC (3.80-5.40) m/uL Hgb (11.4-16.0) gm/dL Hct (34.0-46.0) % MCV (80.0-100.0) fL MCH (25.0-35.0) pg MCHC (31.0-37.0) g/dL RDW (11.5-15.5) % Plt Count (150-450) k/uL MPV Neutrophils % % Lymphocytes % % Monocytes % % Eosinophils % % Basophils % % Neutrophils # (1.3-7.7) k/uL Lymphocytes # (1.0-4.8) k/uL Monocytes # (0-1.0) k/uL Eosinophils # (0-0.7) k/uL Basophils # (0-0.2) k/uL Hypochromasia PT (9.0-12.0) sec INR (<1.2) APTT (22.0-30.0) sec Sodium (137-145) mmol/L Potassium (3.5-5.1) mmol/L Chloride (98-107) mmol/L Carbon Dioxide (22-30) mmol/L Anion Gap mmol/L BUN (7-17) mg/dL Creatinine (0.52-1.04) mg/dL Est GFR (CKD-EPI)AfAm (>60 ml/min/1.73 sqM) Est GFR (CKD-EPI)NonAf (>60 ml/min/1.73 sqM) Glucose (74-99) mg/dL POC Glucose (mg/dL) (75-99) mg/dL POC Glu Compounder ID Plasma Lactic Acid Federico 0.9 (0.7-2.0) mmol/L Calcium (8.4-10.2) mg/dL Magnesium (1.6-2.3) mg/dL Total Bilirubin (0.2-1.3) mg/dL AST (14-36) U/L ALT (4-34) U/L Alkaline Phosphatase (38-126) U/L Ammonia 10 (<30) umol/L Troponin I <0.012 (0.000-0.034) ng/mL NT-Pro-B Natriuret Pep 327 pg/mL Total Protein (6.3-8.2) g/dL Albumin (3.5-5.0) g/dL Coronavirus (PCR) (Not Detectd) 08/25/21 08/25/21 Range/Units 13:29 14:17 WBC (3.8-10.6) k/uL RBC (3.80-5.40) m/uL Hgb (11.4-16.0) gm/dL Hct (34.0-46.0) % MCV (80.0-100.0) fL MCH (25.0-35.0) pg MCHC (31.0-37.0) g/dL RDW (11.5-15.5) % Plt Count (150-450) k/uL MPV Neutrophils % % Lymphocytes % % Monocytes % % Eosinophils % % Basophils % % Neutrophils # (1.3-7.7) k/uL Lymphocytes # (1.0-4.8) k/uL Monocytes # (0-1.0) k/uL Eosinophils # (0-0.7) k/uL Basophils # (0-0.2) k/uL Hypochromasia PT (9.0-12.0) sec INR (<1.2) APTT (22.0-30.0) sec Sodium (137-145) mmol/L Potassium (3.5-5.1) mmol/L Chloride (98-107) mmol/L Carbon Dioxide (22-30) mmol/L Anion Gap mmol/L BUN (7-17) mg/dL Creatinine (0.52-1.04) mg/dL Est GFR (CKD-EPI)AfAm (>60 ml/min/1.73 sqM) Est GFR (CKD-EPI)NonAf (>60 ml/min/1.73 sqM) Glucose (74-99) mg/dL POC Glucose (mg/dL) 221 H (75-99) mg/dL POC Glu Compounder ID Tameka Otoole Plasma Lactic Acid Federico (0.7-2.0) mmol/L Calcium (8.4-10.2) mg/dL Magnesium (1.6-2.3) mg/dL Total Bilirubin (0.2-1.3) mg/dL AST (14-36) U/L ALT (4-34) U/L Alkaline Phosphatase (38-126) U/L Ammonia (<30) umol/L Troponin I (0.000-0.034) ng/mL NT-Pro-B Natriuret Pep pg/mL Total Protein (6.3-8.2) g/dL Albumin (3.5-5.0) g/dL Coronavirus (PCR) Not Detected (Not Detectd) Critical Care Time Critical Care Time: Yes Total Critical Care Time: 33 Disposition Clinical Impression: Cardiac arrest Disposition: Referrals: iMan Sexton MD [Primary Care Provider] - 1-2 days Preliminary Cause of : cardiac arrest, respiratory arrest
[2021-08-25 13:26] VITALS: BP 146/89; PULSE 98; RESP 26; TEMP 99.1
[2021-08-25 13:39] LABS: Basophils # (A) 0.1 k/uL (0-0.2); Basophils % (A) 0 %; Eosinophils # (A) 0.2 k/uL (0-0.7); Eosinophils % (A) 2 %; HCT 33.3 % (34.0-46.0); HGB 9.4 gm/dL (11.4-16.0); Hypochromasia Marked; Lymphocytes # (A) 1.5 k/uL (1.0-4.8); Lymphocytes % (A) 13 %; MCH 23.5 pg (25.0-35.0); MCHC 28.2 g/dL (31.0-37.0); MCV 83.2 fL (80.0-100.0); Mean Platelet Volume 6.8; Monocytes # (A) 0.5 k/uL (0-1.0); Monocytes % (A) 5 %; Neutrophils # (A) 8.9 k/uL (1.3-7.7); Neutrophils % (A) 78 %; Platelet Count 355 k/uL (150-450); RBC 4.01 m/uL (3.80-5.40); RDW 15.7 % (11.5-15.5); WBC 11.4 k/uL (3.8-10.6)
[2021-08-25 13:47] LABS: INR 0.9 (<1.2); Partial Thromboplastin Time 23.2 sec (22.0-30.0); Prothrombin Time 9.9 sec (9.0-12.0)
[2021-08-25 13:48] LABS: Lactic Acid, Venous 0.9 mmol/L (0.7-2.0)
[2021-08-25 13:52] LABS: Albumin 3.8 g/dL (3.5-5.0); Calcium 8.9 mg/dL (8.4-10.2); Magnesium 2.3 mg/dL (1.6-2.3); Potassium 5.1 mmol/L (3.5-5.1); Total Bilirubin 0.4 mg/dL (0.2-1.3); Total Protein 6.8 g/dL (6.3-8.2)
--- NOTE | 2021-08-25 14:03 | XR ---
EXAMINATION TYPE: XR pelvis AP view DATE OF EXAM: 08/25/2021 CLINICAL HISTORY: pain TECHNIQUE: Single view the pelvis is submitted. FINDINGS: No evidence for fracture, dislocation or bony lesion. Joint spaces are well-preserved. S I joints appear symmetric. IMPRESSION: 1. No acute fracture or dislocation seen. ICD 10 NO FRACTURE, INITIAL EVALUATION
--- NOTE | 2021-08-25 14:09 | CT ---
EXAMINATION TYPE: CT brain sarah tee con DATE OF EXAM: 08/25/2021 COMPARISON: NONE HISTORY: fall injury with headache and neck pain CT DLP: 1495.2 mGycm. Automated Exposure Control for Dose Reduction was Utilized. TECHNIQUE: CT scan of the head and cervical spine are performed without contrast. FINDINGS: Exam suboptimal inspiration unable to hold still. No obvious acute intracranial hemorrhag e or midline shift. Moderate size high right parietal acute scalp hematoma. The calvarium is grossly intact. Patchy cerumen in the right external auditory canal. The ventricles and sulci are within nor mal limits in size. Posterior tiny air-fluid level or mucosal thickening right maxillary sinus. Scler al calculation bilateral globes. Completely opacified left sphenoid sinus. Low-lying cerebellar tonsi ls extending to level of foramen magnum. Cervical spine is visualized in its entirety from C1 through upper thoracic levels and demonstrates straightened alignment without evidence of acute fracture or dislocation. Prevertebral soft tissue a ppears within normal limits. The C1-C2 articulation is within normal limits on the coronal images. Slight grade 1 anterolisthesis C4 on C5. Moderate disc space narrowing C5-C6 and C6-C7 levels with mo derate anterior spurring. Review of axial images shows multilevel uncovertebral facet degenerative changes contributing to mult ilevel bilateral neural foraminal narrowing greatest left C2-C3 and right C3-C4 and C4-C5 levels. Thy roid gland within normal limits. Partial visualization of sternal wires. Lung apices show no pneumoth orax. IMPRESSION: 1. Suboptimal study without acute displaced fracture clearly evident in the cervical spine. 2. Suboptimal study without acute intracranial hemorrhage or midline shift clearly seen. High moderat e sized acute scalp hematoma noted.
--- NOTE | 2021-08-25 14:17 | XR ---
EXAMINATION TYPE: XR chest 1V portable DATE OF EXAM: 08/25/2021 HISTORY: Shortness of breath. COMPARISON: 11/02/16 TECHNIQUE: Single view of the chest is submitted. FINDINGS: Demonstrated are scattered senescent parenchymal change. There is no evidence for focal infiltrate. Cardiomegaly with pulmonary venous congestion however no overt failure at this time. Hilar and mediastinal structures are within normal limits. Degenerative changes are seen of the dorsal spine. IMPRESSION: 1. Cardiomegaly with pulmonary venous congestion however no overt failure at this time.
[2021-08-25 14:18] LABS: Glucose,Whole Blood 221 mg/dL (75-99)
[2021-08-25] MEDS ORDERED: NOREPINEPHRINE 4 MG in SODIUM CHLORIDE 0.9% 250 ML IV SCH (14:45)
[2021-08-25] MEDS ORDERED: EPINEPHrine 4 MG in DEXTROSE 5% IN WATER 250 ML IV SCH ×2 (14:45)
== END 2021-08-25 18:13 | disposition expired ==
LOC: EC 12:29
DX: I46.9 Cardiac arrest, cause unspecified (principal); I10 Essential (primary) hypertension; J44.9 Chronic obstructive pulmonary disease, unspecified; I25.10 Atherosclerotic heart disease of native coronary artery without angina pectoris; Z79.51 Long term (current) use of inhaled steroids; Z79.899 Other long term (current) drug therapy; Z20.822 Contact with and (suspected) exposure to COVID-19
CPT/HCPCS: 36415; 93005; 83880; 80053; 82140; 83605; 83735; 84484; 85025; 85610; 85730; 87635; 72170; 71045; 72125; 70450; 31500; 92950; 99291; J0171